=== PATIENT | male | born 1985 | race Two or more races ===

== ENCOUNTER 2019-04-26 08:58 | Emergency (ER) | payer SELFPAY ==
[~2019-04-26] VITALS: Ht 185.4 cm; Wt 104.3 kg
[2019-04-26 09:11] VITALS: BP 114/72
[2019-04-26] MEDS ORDERED: HYDROcodone/APAP 5/325MG 1 TAB TABLET PO ONE (09:30)
--- NOTE | 2019-04-26 09:37 | PHYS DOC ---
Past Medical History Past Medical History: No Pertinent History (MAYUR SIMEON APRN) Past Surgical History: No Surgical History (MAYUR SIMEON APRN) Alcohol Use: Occasionally Drug Use: Marijuana (MAYUR SIMEON APRN) Adult General Chief Complaint Chief Complaint: LOWER EXT PAIN HPI HPI Patient is a 34 year old male who presents with a seizure last 3 weeks he has had a sharp pain behind his knee and at times he feels that it will radiate up the lateral leg. Denies numbness or tingling. He states the pain is worse when he is up and standing on the leg. 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 Patient denies injury. Patient rates his pain 9 out of 10. Patient states early this morning he took 800 mg ibuprofen. He rates his pain a 9 out of 10. (MAYUR SIMEON APRN) Review of Systems Review of Systems Musculoskeletal: Denies back pain. Left knee joint pain [] All other systems were reviewed and found to be within normal limits, except as documented in this note. (MAYUR SIEMON APRN) Current Medications Current Medications Current Medications Medications (Trade) Dose Ordered Sig/Sam Start Time Stop Time Status Last Admin Dose Admin Acetaminophen/ Hydrocodone Bitart (Lortab 5/325) 1 tab 1X ONCE 04/26/19 09:30 04/26/19 09:31 DC 04/26/19 09:45 1 TAB (ALLEN BLACKBURN DO) Allergies Allergies Allergies Coded Allergies Type Severity Reaction Last Updated Verified No Known Drug Allergies 04/26/19 No (ALLEN BLACKBURN DO) Physical Exam Physical Exam Constitutional: Well developed, well nourished, no acute distress, non-toxic appearance. [] Skin: Warm, dry, no erythema, no rash. [] Extremities: Back of left knee tenderness, no cyanosis, no clubbing, ROM intact, no edema. [] Neurologic: Alert and oriented X 3, normal motor function, normal sensory function, no focal deficits noted. [] Psychologic: Affect normal, judgement normal, mood normal. [] (MAYUR SIMEON APRN) Current Patient Data Vital Signs Vital Signs Date Time Temp Pulse Resp B/P (MAP) Pulse Ox O2 Delivery O2 Flow Rate FiO2 04/26/19 09:45 16 98 Room Air 04/26/19 09:11 98.3 88 114/72 (86) 98.3 (ALLEN BLACKBURN DO) EKG EKG [] (MAYUR SIMEON APRN) Radiology/Procedures Radiology/Procedures [] (MAYUR SIMEON APRN) Impressions: [place] [id number] IMAGING REPORT Signed PATIENT: NANCY REY AACCOUNT: [id number] : 1985 LOCATION: ER AGE: 34 SEX: M EXAM STATUS: REG ER ORD. PHYSICIAN: MAYUR SIMEON APRN REASON: pain behind lt knee, no known injury PROCEDURE: KNEE LEFT 4V AP, sunrise and oblique, and lateral views of the left knee were obtained. Indication: Pain behind knee, no known injury Comparison: none. Findings: No fracture, dislocation, significant degenerative changes, or effusion is seen. Impression: 1. Unremarkable examination of the left knee. Electronically signed by: Oscar Ruff MD (04/26/2019 9:57 AM) [facility] DICTATED and SIGNED BY: OSCAR RUFF MD DATE: 04/26/[address] [address] IMAGING REPORT Signed PATIENT: NANCY REY AACCOUNT: [id number] : 1985 LOCATION: ER AGE: 34 SEX: M EXAM STATUS: REG ER ORD. PHYSICIAN: MAYUR SIMEON APRN REASON: pain behind left knee PROCEDURE: VENOUS LOWER EXTREMITY LEFT EXAM: Left lower extremity venous Doppler. HISTORY: Left lower extremity and popliteal pain/swelling. COMPARISON: None. FINDINGS: Grayscale and Doppler analysis of the left lower extremity deep venous system was performed with graded compression and augmentation. The common femoral, greater saphenous, superficial femoral, popliteal and calf veins were assessed. There is no evidence of deep venous thrombosis. IMPRESSION: 1. No evidence of deep venous thrombosis. Electronically signed by: Jory Shane MD (04/26/2019 10:45 AM) [facility] DICTATED and SIGNED BY: KEN SHANE MD DATE: 04/26/19 1045 (MARTHALENA QUINTANILLAROSA ELENA Rodriguez APRN) Course & Med Decision Making Course & Med Decision Making Skin is pink warm and dry. No wounds or redness to the extremity. No mass felt or seen behind the knee. Patient is able to steady gait. No swelling to the knee or the left lower extremity. Pedal pulses strong and present. Denies temperature change in the leg or skin color change. Tenderness to the back of the knee with palpation. (MAYUR SIMEON APRN) Dragon Disclaimer Dragon Disclaimer This electronic medical record was generated, in whole or in part, using a voice recognition dictation system. (MAYUR SIMEON APRN) Departure Departure Impression: Primary Impression: Knee pain, left Disposition: HOME, SELF-CARE Condition: STABLE Referrals: NO PCP (PCP) [facility] STOREY MD Patient Instructions: Cao's Cyst, Knee Pain, [id number] Additional Instructions: Follow-up with her primary care doctor or the orthopedic doctor. Take medication as prescribed. Scripts Ibuprofen (IBUPROFEN) 600 Mg Tablet 600 MG PO PRN Q6HRS PRN for INFLAMMATION, #30 TAB Prov: MAYUR SIMEON Michael RAYMOND 04/26/19 Hydrocodone Bit/Acetaminophen (HYDROCODONE-APAP 5-325 ) 1 Tab Tablet 1 TAB PO PRN Q6HRS PRN for PAIN, #10 TAB 0 Refills Prov: BLANCOLENAMAYURROSA ELENA Rodriguez APRN 04/26/19 Attending Signature Attending Signature I have reviewed the PA/ASSISTED LIVING MANAGER's note and plan of care. I was available for consultation as needed during the patient's visit in the emergency department. I agree with the clinical impression, plan, and disposition. (ALLEN BLACKBURN DO) Problem Qualifiers Primary Impression: Knee pain, left Chronicity: acute Qualified Codes: M25.562 - Pain in left knee BLANCOMAYURROSA ELENA Rodriguez APRN Apr 26, 2019 09:37 ALLEN BLACKBURN DO Apr 28, 2019 12:38
--- NOTE | 2019-04-26 10:00 | RAD ---
AP, sunrise and oblique, and lateral views of the left knee were obtained. Indication: Pain behind knee, no known injury Comparison: none. Findings: No fracture, dislocation, significant degenerative changes, or effusion is seen. Impression: 1. Unremarkable examination of the left knee. Electronically signed by: Oscar Ruff MD (04/26/2019 9:57 AM) [facility]
--- NOTE | 2019-04-26 10:48 | RAD ---
EXAM: Left lower extremity venous Doppler. HISTORY: Left lower extremity and popliteal pain/swelling. COMPARISON: None. FINDINGS: Grayscale and Doppler analysis of the left lower extremity deep venous system was performed with graded compression and augmentation. The common femoral, greater saphenous, superficial femoral, popliteal and calf veins were assessed. There is no evidence of deep venous thrombosis. IMPRESSION: 1. No evidence of deep venous thrombosis. Electronically signed by: Jory Shane MD (04/26/2019 10:45 AM) [facility]
[2019-04-26] MEDS ORDERED: HYDR-2761 PO (10:55)
[2019-04-26] MEDS ORDERED: IBUP-1007 PO (10:55)
== END 2019-04-26 11:04 | disposition home or self-care (01) ==
LOC: ER 08:58
DX: M25.562 Pain in left knee (principal); F12.90 Cannabis use, unspecified, uncomplicated
CPT/HCPCS: 73564; 93971; 99284